=== PATIENT | male | born 1940 | race Caucasian/White ===

== ENCOUNTER → 2019-03-01 | Outpatient (CLI) | payer MEDICARE ==
--- NOTE | 2019-03-02 07:14 | US ---
EXAMINATION TYPE: US carotid duplex BILAT DATE OF EXAM: 03/01/2019 COMPARISON: NONE CLINICAL HISTORY: I65.29 OCCLUSION AND STENOSIS OF CAROTID ARTERY. EXAM MEASUREMENTS: RIGHT: Peak Systolic Velocity (PSV) cm/sec ----- Right CCA: 69.0 ----- Right ICA: 141.6 ----- Right ECA: 134.6 ICA/CCA ratio: 2.1 RIGHT: End Diastole cm/sec ----- Right CCA: 22.2 ----- Right ICA: 43.0 ----- Right ECA: 13.1 LEFT: Peak Systolic Velocity (PSV) cm/sec ----- Left CCA: 88.9 ----- Left ICA: 91.5 ----- Left ECA: 113.5 ICA/CCA ratio: 1.0 LEFT: End Diastole cm/sec ----- Left CCA: 25.4 ----- Left ICA: 33.2 ----- Left ECA: 20.1 VERTEBRALS (direction of flow): Right Vertebral: Antegrade Left Vertebral: Antegrade Rhythm: Normal Moderate amount of plaque visualized in right bulb. Elevated velocities visualized proximal right ICA and right ECA IMPRESSION: 1. Stenosis within the right internal carotid artery of 50-69%. CTA could further assess the degree o f stenosis. 2. No evidence of hemodynamically significant stenosis visualized on the left. Criteria for Assigning % of Stenosis / Diameter reduction (Estimation based on the indirect measurements of the internal carotid artery velocities (ICA PSV). 1. Normal (no stenosis)=ICA PSV < 125 cm/s: ratio < 2.0: ICA EDV<40 cm/s. 2. Less than 50% stenosis=ICA PSV < 125 cm/s: ratio < 2.0: ICA EDV<40 cm/s. 3. 50 to 69% stenosis=ICA PSV of 125 to 230 cm/s: ration 2.0 ? 4.0: ICA EDV 40-100 cm/s. 4. Greater than 70% stenosis to near occlusion= ICA PSV > 230 cm/s: ratio > 4.0: ICA EDV > 100 cm/s. 5. Near occlusion= ICA PSV velocities may be low or undetectable: variable ratio and ICA EDV. 6. Total occlusion=unable to detect flow.
== END | disposition home or self-care (01) ==
LOC: RADUSWWP 15:33
PROVIDERS: ATTEND Family Medicine
DX: I65.21 Occlusion and stenosis of right carotid artery (principal)
CPT/HCPCS: 93880

== ENCOUNTER → 2023-04-15 | Outpatient (CLI) | payer MEDICARE ==
--- NOTE | 2023-04-16 03:20 | EEG ---
ELECTROENCEPHALOGRAM REPORT PREAMBLE: This is an 83-year-old male who had some episodes of fuzzy feeling while driving, difficulty staying between the lines while driving on the highway. He also has some memory difficulties with word-finding problem. This study is performed to rule out any epileptiform activity. EEG FINDINGS: This is a 21-channel digital EEG recorded with video component, utilizing 10/20 international system with referential and bipolar montages. The recording starts with the patient being asleep in stage II, with presence of lot of sleep spindles and vertex waves. The patient remained drowsy in stage 2 sleep during most of the study. Brief periods of wakefulness revealed normal appearing background, which was reactive to eye opening and closing. No focal or generalized epileptiform activity was seen. Photic driving response was not seen. IMPRESSION: This is probably a normal EEG mainly during drowsiness and stage 2 sleep. Brief period of wakefulness revealed no abnormalities. No epileptiform activity was seen. MMODL / IJN: [id number] /
== END ==
LOC: NEUROMAIN 07:37
PROVIDERS: ATTEND Family Medicine
DX: R41.3 Other amnesia (principal)
CPT/HCPCS: 95819